=== PATIENT | female | born 1955 | race Two or more races ===

== ENCOUNTER 2017-05-27 17:29 | Emergency (ER) | payer MEDICARE, OTHER ==
[~2017-05-27] VITALS: Ht 165.1 cm; Wt 72.6 kg
[~2017-05-27 17:29] MED LIST: ATEN50TA PO; OLME40TA12 PO; ROSU10TA PO
--- NOTE | 2017-05-27 17:40 | NUR ---
[id number] FROM HOME FOR BACK PAIN RADIATING TO RT LEG X 3 DAYS WORSE TODAY, DENIES INJURY. +FACIAL GRIMACING NOTED. PT ASSISTED TO ED BED 13. FAMILY AT BEDSIDE. REPORT TO [facility]FI[facility] ULLOA
[2017-05-27] MEDS ORDERED: ONDANSETRON 4 MG TAB.RAPDIS SL ONE (18:30)
[2017-05-27] MEDS ORDERED: MORPHINE SULFATE INJ 2 MG/ML DISP.SYRIN IM ONE (18:30)
[2017-05-27] MEDS ORDERED: ONDANSETRON 4 MG TAB.RAPDIS ONE (19:12)
[2017-05-27] MEDS ORDERED: MORPHINE SULFATE INJ 4 MG/ML DISP.SYRIN ONE (19:12)
[2017-05-27 19:51] LABS: APPEARANCE,URINE Clear (CLEAR); BILIRUBIN,URINE Negative (NEGATIVE); BLOOD, URINE Negative Ery/uL (NEGATIVE); COLOR,URINE Yellow (YELLOW); KETONES,URINE Negative (NEGATIVE); LEUKOCYTE ESTERASE ,URINE Trace (NEGATIVE); NITRITE, URINE Negative (NEGATIVE); PH,URINE 5.5 (5.0-8.0); PROTEIN,URINE Negative (NEGATIVE); UGLUCOSE Negative (NEGATIVE); UROBILINOGEN,URINE 0.2 EU/dL (0.2)
[2017-05-27 20:18] LABS: BACTERIA,URINE Rare /HPF (None Seen); RBC,URINE 0-2 /HPF (0-2); SQUAMOUS EPITHELIAL CELL,UR Few /HPF (None Seen); URINE AMORPHOUS URATE Few /HPF (None Seen)
[2017-05-27 20:34] VITALS: BP 146/98
--- NOTE | 2017-05-27 20:34 | NUR ---
Patient discharged to home in stable condition. Written and verbal after care instructions given. Patient verbalizes understanding of instruction.
== END 2017-05-27 20:35 | disposition home or self-care (01) ==
LOC: ER 17:31
DX: M54.41 Lumbago with sciatica, right side (principal); E78.5 Hyperlipidemia, unspecified; F41.9 Anxiety disorder, unspecified; I10 Essential (primary) hypertension; Z88.0 Allergy status to penicillin
CPT/HCPCS: 81000-TC; 93971-TC; A4606; J2270; Q0162; Z7610

== ENCOUNTER 2023-04-11 05:43 | Inpatient (IN) | payer MEDICARE, OTHER ==
[~2023-04-11] VITALS: Ht 154.9 cm; Wt 62.1 kg
[~2023-04-11 05:43] MED LIST changes: -ROSU10TA PO; +ROSU10TA2 PO
[2023-04-11] MEDS ORDERED: LIDOCAINE 2%-EPI 1:100,000 30 ML VIAL ONE (07:20)
[2023-04-11] MEDS ORDERED: VANCOMYCIN 1 GM VIAL ONE (07:20)
[2023-04-11] MEDS ORDERED: ROCURONIUM BROMIDE 50 MG/5 ML ONE (07:33)
[2023-04-11 08:06] VITALS: BP 156/78; TEMP 97.8
[2023-04-11] MEDS ORDERED: FENTANYL PF 100MCG/2ML AMPUL ONE (09:07)
[2023-04-11] MEDS ORDERED: ONDANSETRON HCL/PF 4 MG/2 ML VIAL ONE (09:10)
[2023-04-11] MEDS ORDERED: ATROPINE SULFATE 1 MG/10 ML DISP.SYRIN ONE (09:14)
[2023-04-11] MEDS: IV NS 0.9% 1,000 ML IV PRN (11:00)
[2023-04-11] MEDS ORDERED: HYDROMORPHONE 1 MG/1 ML DISP.SYRIN IV PRN (11:00)
[2023-04-11] MEDS ORDERED: ACETAMINOPHEN 325 MG TABLET PO PRN (11:00)
[2023-04-11] MEDS ORDERED: ONDANSETRON HCL/PF 4 MG/2 ML VIAL IVP PRN (11:00)
[2023-04-11 11:03] VITALS: BP 123/46; TEMP 98.8; O2SAT 98
[2023-04-11] MEDS: TRAMADOL HCL 50 MG TABLET PO SCH ×2 (11:36→18:52)
[2023-04-11] MEDS ORDERED: ASPI-1420 PO (12:20)
[2023-04-11] MEDS ORDERED: IRBE300T19 PO (12:20)
[2023-04-11] MEDS ORDERED: DEXL30CA3 PO (12:20)
[2023-04-11] MEDS ORDERED: LORA-259 PO (12:20)
[2023-04-11] MEDS ORDERED: METO25TA6 PO (12:20)
[2023-04-11] MEDS: HYDROCODONE/APAP 5/325MG TABLET PO PRN ×2 (13:57→22:34)
[2023-04-11 16:12] VITALS: BP 117/58; TEMP 98.1; O2SAT 95
[2023-04-11 19:41] LABS: CALCIUM, SERUM 8.3 mg/dL (8.5-10.1); CREATININE 0.8 mg/dL (0.6-1.3); POTASSIUM 4.4 mmol/L (3.5-5.1)
[2023-04-11 20:00] VITALS: BP 130/54; TEMP 97.6; O2SAT 96
[2023-04-11] MEDS ORDERED: VANCOMYCIN 1 GM in IV D5W 250ml IV SCH (20:00)
[2023-04-12] MEDS: TRAMADOL HCL 50 MG TABLET PO SCH ×2 (03:06→10:56)
[2023-04-12] MEDS: IV NS 0.9% 1,000 ML IV PRN (05:12)
[2023-04-12 07:07] LABS: CALCIUM, SERUM 8.7 mg/dL (8.5-10.1); CREATININE 0.6 mg/dL (0.6-1.3); POTASSIUM 4.1 mmol/L (3.5-5.1)
[2023-04-12 08:00] VITALS: BP 126/59; TEMP 98; O2SAT 98
[2023-04-12] MEDS ORDERED: VANCOMYCIN 1.25 GM in IV D5W 250 ML IV ONE (08:00)
[2023-04-12] MEDS ORDERED: TRAM50TA2 PO (12:18)
[2023-04-12] MEDS ORDERED: IBUP-1955 PO (12:24)
[2023-04-12] MEDS ORDERED: VANCOMYCIN HCL 0.75 GM in IV D5W 250 ML IV SCH (20:00)
== END 2023-04-12 13:51 | disposition home or self-care (01) | DRG 517 ==
LOC: DS 05:43 → MED 05:44
PROVIDERS: ADMIT Nurse Practitioner Acute Care; ATTEND Nurse Practitioner Acute Care
PROC: 09BR0ZZ Excision of Left Maxillary Sinus, Open Approach (ICD-10-PCS; principal; 2023-04-11)
PROC: 0NUR07Z Supplement Maxilla with Autologous Tissue Substitute, Open Approach (ICD-10-PCS; 2023-04-11)
PROC: 0NSR04Z Reposition Maxilla with Internal Fixation Device, Open Approach (ICD-10-PCS; 2023-04-11)
PROC: 0NBR0ZX Excision of Maxilla, Open Approach, Diagnostic (ICD-10-PCS; 2023-04-11)
DX: S02.40DK Maxillary fracture, left side, subsequent encounter for fracture with nonunion (principal); J32.9 Chronic sinusitis, unspecified; I10 Essential (primary) hypertension; X58.XXXA Exposure to other specified factors, initial encounter; Y92.9 Unspecified place or not applicable; E78.5 Hyperlipidemia, unspecified; Z88.0 Allergy status to penicillin; Z79.82 Long term (current) use of aspirin; Z79.899 Other long term (current) drug therapy; D16.4 Benign neoplasm of bones of skull and face
CPT/HCPCS: 36415; 80048-TC; 82962-TC; 87081-TC; A4223; C1713; G0378; J0461; J0690; J1100; J2405; J2704; J3010; J3370; J3490; J7030; J7060

== ENCOUNTER 2025-04-02 08:26 | Inpatient (IN) | payer MEDICARE, OTHER ==
[~2025-04-02] VITALS: Ht 154.9 cm; Wt 69.2 kg
[~2025-04-02 08:26] MED LIST changes: +ASPI-1420 PO; -ATEN50TA PO; +DEXL30CA3 PO; +IBUP-1955 PO; +IRBE300T19 PO; +LORA-259 PO; +METO25TA6 PO; -OLME40TA12 PO; +TRAM50TA2 PO
[2025-04-02] MEDS ORDERED: MIDAZOLAM HCL 2 MG/2ML VIAL ONE (09:45)
[2025-04-02] MEDS ORDERED: FENTANYL PF 100MCG/2ML AMPUL ONE (09:46)
[2025-04-02] MEDS ORDERED: dexaMETHasone SOD PHOSPHATE 2 ML ONE (09:47)
[2025-04-02] MEDS ORDERED: LIDOCAINE 2%-EPI 1:100,000 30 ML VIAL ONE (09:47)
[2025-04-02] MEDS ORDERED: VANCOMYCIN 1 GM VIAL ONE (09:47)
[2025-04-02] MEDS ORDERED: ANESTHESIA TRAY IN PYXIS 1 EA TRAY MC ONE (09:48)
[2025-04-02] MEDS ORDERED: ONDANSETRON HCL/PF 4 MG/2 ML VIAL IV PRN (13:00)
[2025-04-02] MEDS ORDERED: ACETAMINOPHEN 325 MG TABLET PO PRN ×2 (13:00→13:30)
[2025-04-02] MEDS: HYDROMORPHONE 1 MG/1 ML DISP.SYRIN IV PRN (13:14)
[2025-04-02] MEDS: IV NS 0.9% 1,000 ML IV PRN (13:15)
[2025-04-02] MEDS ORDERED: MAGNESIUM HYDROXIDE 30 ML UDC PO PRN (13:30)
[2025-04-02] MEDS ORDERED: ONDANSETRON HCL/PF 4 MG/2 ML VIAL IVP PRN (13:30)
[2025-04-02] MEDS ORDERED: MAG HYDROX/AL HYDROX/SIMETH 30 ML UDC PO PRN (13:30)
[2025-04-02] MEDS ORDERED: Z GUARD REMEDY 4 OZ OINT TP PRN (13:30)
[2025-04-02] MEDS ORDERED: OMEP40CA21 PO (14:07)
[2025-04-02] MEDS ORDERED: METO-357 PO (14:07)
[2025-04-02] MEDS ORDERED: LORAZEPAM 1 MG TABLET PO PRN (15:30)
[2025-04-02 16:00] VITALS: BP 115/55; TEMP 97.7; O2SAT 97
[2025-04-02] MEDS: HYDROCODONE/APAP 5/325MG TABLET PO PRN (17:53)
[2025-04-02 20:00] VITALS: BP 124/51; TEMP 97.3; O2SAT 96
[2025-04-02] MEDS: VANCOMYCIN 1 GM in IV D5W 250ml IV SCH (20:44)
[2025-04-03 07:04] LABS: PLATELET COUNT (AUTO) 247 K/uL (150-450); RED BLOOD CELL COUNT(AUTO) 3.36 MIL/uL (4.0-5.2); RED CELL DISTRIBUTION WIDTH 13.6 % (11.5-15.0); WHITE BLOOD COUNT (AUTO) 14.4 K/uL (4.3-11.0)
[2025-04-03 07:35] LABS: CALCIUM, SERUM 8.0 mg/dL (8.5-10.1); CREATININE 1.0 mg/dL (0.6-1.3); PHOSPHORUS 4.3 mg/dL (2.5-4.9); SODIUM SERUM 142.0 mmol/L (136-145); UREA NITROGEN, BLOOD 25.0 mg/dL (7-18)
[2025-04-03 08:00] VITALS: BP 113/53; TEMP 97.7; O2SAT 98
[2025-04-03] MEDS: ATORVASTATIN 40 MG TABLET PO SCH (08:34)
[2025-04-03] MEDS: ASPIRIN EC 81 MG TABLET.DR PO SCH (08:34)
[2025-04-03 08:35] VITALS: BP 113/53
[2025-04-03] MEDS: PANTOPRAZOLE 40 MG TABLET.DR PO SCH (08:35)
[2025-04-03] MEDS: LOSARTAN POTASSIUM 50 MG TABLET PO SCH (08:35)
[2025-04-03] MEDS: METOPROLOL SUCCINATE 50 MG TAB.SR.24H PO SCH (08:35)
== END 2025-04-03 14:00 | disposition home or self-care (01) | DRG 142 ==
LOC: DS 08:26 → MED 08:27
PROVIDERS: ADMIT Nurse Practitioner Acute Care; ATTEND Nurse Practitioner Acute Care
PROC: 0NSV04Z Reposition Left Mandible with Internal Fixation Device, Open Approach (ICD-10-PCS; 2025-04-02)
PROC: 0N5V0ZZ Destruction of Left Mandible, Open Approach (ICD-10-PCS; 2025-04-02)
PROC: 0NST04Z Reposition Right Mandible with Internal Fixation Device, Open Approach (ICD-10-PCS; 2025-04-02)
PROC: 0NUV07Z Supplement Left Mandible with Autologous Tissue Substitute, Open Approach (ICD-10-PCS; 2025-04-02)
PROC: 09UQ07Z Supplement Right Maxillary Sinus with Autologous Tissue Substitute, Open Approach (ICD-10-PCS; 2025-04-02)
PROC: 0NUT07Z Supplement Right Mandible with Autologous Tissue Substitute, Open Approach (ICD-10-PCS; 2025-04-02)
PROC: 0N5T0ZZ Destruction of Right Mandible, Open Approach (ICD-10-PCS; 2025-04-02)
PROC: 0N5R0ZZ Destruction of Maxilla, Open Approach (ICD-10-PCS; 2025-04-02)
PROC: 0NSR04Z Reposition Maxilla with Internal Fixation Device, Open Approach (ICD-10-PCS; principal; 2025-04-02 10:15)
DX: S02.40CA Maxillary fracture, right side, initial encounter for closed fracture (principal); D16.4 Benign neoplasm of bones of skull and face; S02.609A Fracture of mandible, unspecified, initial encounter for closed fracture; I10 Essential (primary) hypertension; E66.9 Obesity, unspecified; D16.5 Benign neoplasm of lower jaw bone; M27.2 Inflammatory conditions of jaws; E78.5 Hyperlipidemia, unspecified; Z86.79 Personal history of other diseases of the circulatory system; Z88.0 Allergy status to penicillin; Z90.710 Acquired absence of both cervix and uterus; Z85.831 Personal history of malignant neoplasm of soft tissue; Z68.28 Body mass index [BMI] 28.0-28.9, adult; X58.XXXA Exposure to other specified factors, initial encounter; Y92.9 Unspecified place or not applicable
CPT/HCPCS: 36415; 71045-TC; 80048-TC; 83735-TC; 84100-TC; 85025-TC; 88305-TC; 88311-TC; A4217; A4223; A4338; C1713; G0378; J0330; J0690; J1100; J1171; J1885; J2250; J2405; J2704; J2765; J3010; J3373; J3490; J7030; J7060